=== PATIENT | female | born 1965 | race Caucasian/White ===

== ENCOUNTER 2021-10-27 11:02 | Emergency (ER) | payer BC ==
[2021-10-27 11:40] VITALS: BP 110/67; PULSE 90
[2021-10-27 12:22] LABS: CORONAVIRUS COVID-19 NAA NEGATIVE (NEGATIVE)
[2021-10-27] MEDS ORDERED: cefTRIAXone 1 GM, Lidocaine 1% 2.1 ML IM ONE ×2 (12:46)
== END 2021-10-27 13:07 | disposition home or self-care (01) ==
LOC: DL.ED 11:02
DX: J10.1 Influenza due to other identified influenza virus with other respiratory manifestations (principal); J02.0 Streptococcal pharyngitis; J01.90 Acute sinusitis, unspecified; E78.00 Pure hypercholesterolemia, unspecified; I10 Essential (primary) hypertension; Z20.822 Contact with and (suspected) exposure to COVID-19
CPT/HCPCS: 0240U; 87430; 96372; 99283; J0696